=== PATIENT | male | born 1955 | race Caucasian/White ===

== ENCOUNTER → 2021-01-16 | Outpatient (CLI) | payer OTHER ==
[~2021-01-16] MED LIST: AUGMENTIN 875875 MG PO; HYDROCODONE BIT1 T11 PO; LISINOPRIL10 MG PO; PAROXETINE20 MG PO
== END | disposition home or self-care (01) ==
LOC: RAD 13:35
PROVIDERS: ATTEND Nurse Practitioner
DX: M51.37 Other intervertebral disc degeneration, lumbosacral region (principal); M48.061 Spinal stenosis, lumbar region without neurogenic claudication; M16.0 Bilateral primary osteoarthritis of hip; M41.86 Other forms of scoliosis, lumbar region

== ENCOUNTER → 2021-02-06 | Outpatient (CLI) | payer OTHER | END | disposition home or self-care (01) | LOC: MRI 08:38 | PROVIDERS: ATTEND Nurse Practitioner | DX: S73.102A Unspecified sprain of left hip, initial encounter (principal); Y93.89 Activity, other specified; Y92.89 Other specified places as the place of occurrence of the external cause; Y99.8 Other external cause status; M16.12 Unilateral primary osteoarthritis, left hip; M25.852 Other specified joint disorders, left hip; M25.752 Osteophyte, left hip; X58.XXXA Exposure to other specified factors, initial encounter ==

== ENCOUNTER 2025-02-14 16:04 | Emergency (ER) | payer MEDICARE ==
[~2025-02-14] VITALS: Wt 98.0 kg
[2025-02-14] MEDS ORDERED: IOHEXOL 350 MG/ML 100 ML VIAL IV ONE ×2 (16:15→16:33)
[2025-02-14] MEDS ORDERED: SODIUM CHLORIDE 0.9% 100 ML BAG IV ONE (16:15)
[2025-02-14] MEDS ORDERED: SODIUM CHLORIDE 0.9% 100 ML IV ONE (16:33)
[2025-02-14 16:47] LABS: BASO % 0.1 % (0.0-1.0); EOS # 0.1 10*3/uL (0.0-0.4); EOS % 0.4 % (1.0-4.0); HEMATOCRIT 42.8 % (42.0-52.0); MEAN CORPUSCULAR HGB 29.1 pg (27.0-31.0); MEAN CORPUSCULAR HGB CONC 33.4 g/dl (33.0-37.0); MEAN PLATELET VOLUME 9.6 fl (9.6-12.3); MONO # 1.4 10*3/uL (0.1-1.0); MONO % 6.1 % (3.0-9.0); NEUT # 19.2 10*3/uL (2.3-7.9); NEUT % 84.5 % (47.0-73.0); PLATELET COUNT AUTOMATED 365 10*3/uL (130-400); RED BLOOD COUNT 4.92 10*6/uL (4.50-5.90); RED CELL DISTRI WIDTH 13.3 % (0-14.5); WHITE BLOOD COUNT 22.7 10*3/uL (4.8-10.8)
[2025-02-14 16:53] LABS: ACT PARTIAL THROMBO TIME 24.7 SECONDS (20.0-32.1)
[2025-02-14 17:12] LABS: ALKALINE PHOSPHATASE 82 U/L (46-116); BUN 16 mg/dl (9-23); CHLORIDE 105 mmol/L (98-107); POTASSIUM 3.7 mmol/L (3.4-5.1); SGPT/ALT 51 U/L (5-49)
[2025-02-14] MEDS ORDERED: ASPIRIN 300 MG SUPP R ONE (19:45)
== END 2025-02-14 22:34 | disposition short-term general hospital (02) ==
LOC: ED 16:04
PROVIDERS: Internal Medicine
DX: I63.9 Cerebral infarction, unspecified (principal); F41.9 Anxiety disorder, unspecified; Z79.899 Other long term (current) drug therapy; Z98.890 Other specified postprocedural states